=== PATIENT | female | born 1970 | race Asian ===

== ENCOUNTER 2018-09-23 21:15 | Emergency (ER) | payer OTHER ==
--- NOTE | 2018-09-23 22:57 | ED Physician Documentation ---
PD HPI HEENT - Stated complaint Stated Complaint: DIZZINESS - Chief complaint Chief Complaint: Neuro - History obtained from History obtained from: Patient - History of Present Illness Timing - onset: How many days ago (2-3) Timing - duration: Days (She has been having feeling of dizziness but not distinct vertigo but she was feeling worse when she turned her head or changed p osition. She still had some sense of motion with even laying still. She describes a posterior headache near the base of the neck. She denies any injury. She denies any other focal deficits or visual changes.) Timing - details: Abrupt onset, Waxing and waning Location: No: Sinuses, Throat Improves: Other (holding still) Worsens: Position, Other (head movement) Associated symptoms: Headache (posteriorly, from neck to back of head). No: Fever, Congestion, Cough Similar symptoms before: Has not had sx before Recently seen: Not recently seen Review of Systems Constitutional: reports: Other (She states she took her blood pressure over the last week and it has been about 1 60-1 80 systolic). denies: Fever Eyes: denies: Loss of vision, Decreased vision, Photophobia Nose: denies: Rhinorrhea / runny nose, Congestion Throat: denies: Sore throat Respiratory: denies: Cough GI: reports: Nausea. denies: Abdominal Pain, Diarrhea Skin: denies: Rash, Lesions Neurologic: reports: Headache. denies: Focal weakness, Numbness, Altered mental status PD PAST MEDICAL HISTORY - Past Medical History Cardiovascular: None Respiratory: None Neuro: None Endocrine/Autoimmune: None - Present Medications Home Medications: Ambulatory Orders Medication Instructions Recorded Confirmed Dexamethasone [Decadron] 4 mg PO DAILY #5 tablet 09/24/18 Losartan [Cozaar] 50 mg PO DAILY #30 tablet 09/24/18 Meclizine [Antivert] 25 mg PO Q6H PRN #30 tablet 09/24/18 - Allergies Allergies/Adverse Reactions: Allergies Allergy/AdvReac Type Severity Reaction Status Date / Time No Known Drug Allergies Allergy Verified 09/23/18 21:21 PD ED PE NORMAL - Vitals Vital signs reviewed: Yes - General General: Alert and oriented X 3, Well developed/nourished - HEENT HEENT: PERRL, EOMI (no noted nystagmus), Ears normal, Pharynx benign - Neck Neck: Supple, no meningeal sign, No adenopathy, No bruit - Cardiac Cardiac: RRR, No murmur - Respiratory Respiratory: Clear bilaterally - Abdomen Abdomen: Soft, Non tender - Back Back: No CVA TTP - Derm Derm: Normal color, Warm and dry - Extremities Extremities: No deformity, No tenderness to palpate - Neuro Neuro: Alert and oriented X 3, 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, No motor deficit, No sensory deficit, Normal speech Results - Vitals Vitals: Vital Signs - 24 hr 09/23/18 09/23/18 09/24/18 21:18 23:18 02:49 Temperature 36.7 C 36.7 C Heart Rate 84 76 74 Respiratory 18 19 18 Rate Blood Pressure 232/123 H 182/104 H 137/64 H O2 Saturation 100 99 100 Oxygen O2 Source Room air - Labs Labs: Laboratory Tests 09/23/18 09/23/18 09/23/18 22:35 22:35 22:39 WBC 5.4 RBC 4.40 Hgb 13.5 Hct 39.9 MCV 90.8 MCH 30.7 MCHC 33.9 RDW 13.1 Plt Count 315 MPV 7.6 L Neut # (Auto) 2.8 Lymph # (Auto) 1.7 [place] # (Auto) 0.5 Eos # (Auto) 0.3 Baso # (Auto) 0.0 Absolute Nucleated RBC 0.00 Nucleated RBC % 0.1 ESR 14 Sodium 138 Potassium 3.6 Chloride 101 Carbon Dioxide 29 Anion Gap 8.0 BUN 13 Creatinine 0.7 Estimated GFR (MDRD) 89 Glucose 105 H Calcium 9.1 Total Bilirubin 0.4 AST 15 ALT 16 Alkaline Phosphatase 50 Total Protein 7.6 Albumin 4.2 Globulin 3.4 Albumin/Globulin Ratio 1.2 Lipase 38 - Rads (name of study) head and neck angio Radiology: Prelim report reviewed (Normal studies.), See rad report PD MEDICAL DECISION MAKING - ED course Complexity details: reviewed results (Labs are normal as is imaging and she is feeling better with meclizine and some Zofran.), considered differential (Given her vertigo with out a distinct motion and it does lessen but not completely dampen with holding still and combined with posterior headache, I was concerned about vascular insufficiency or dissection or tumors. Also consider the possibility of electrolyte disorders. We did some blood tests and will get head CT and an GUERDA.), d/w patient Departure - Departure Disposition: 01 Home, Self Care Clinical Impression: Dizziness Headache Qualifiers: Headache type: unspecified Headache chronicity pattern: acute headache Intractability: not intractable Qualified Code(s): R51 - Headache High blood pressure Qualifiers: Hypertension type: unspecified Qualified Code(s): I10 - Essential (primary) hypertension Condition: Stable Record reviewed to determine appropriate education?: Yes Instructions: ED Hypertension New Begin Tx, ED Vertigo Unspecified Follow-Up: Kory North MD [Primary Care Provider] - Prescriptions: Dexamethasone [Decadron] 4 mg PO DAILY #5 tablet Losartan [Cozaar] 50 mg PO DAILY #30 tablet Meclizine [Antivert] 25 mg PO Q6H PRN #30 tablet PRN Reason: Vertigo Comments: Your blood tests are normal and not indicating an inflammatory or infectious cause for the headache or dizziness. The CT scan of your head and the dye test portion of it showed normal blood flow and no signs of tumor swelling or bleeding. I presume your symptoms are from some inner ear irritation. Use meclizine every 6 hours if needed for dizziness/lightheadedness. Decadron daily for a few days for presumed some inflammation in the inner ear. Some of the headache and lightheaded feeling may be from your blood pressure being as elevated. However you have had symptoms with your blood pressure only began as moderately elevated at home so I do not think it is the primary cause of your symptoms. However it was elevated enough to sounds reasonable to start a mild blood pressure medicine. Take losartan 50 mg daily. Follow-up with your primary care later in the week or next week if symptoms are not fully resolved and also to recheck your blood pressure. Discharge Date/Time: 09/24/18 02:49
[2018-09-23 23:00] LABS: BASOPHILS % (AUTO) 0.7 %; EOSINOPHILS # (AUTO) 0.3 10^3/uL (0.0-0.7); EOSINOPHILS % (AUTO) 5.8 %; HGB - HEMOGLOBIN 13.5 g/dL (12.0-16.0); LYMPHOCYTES # (AUTO) 1.7 10^3/uL (1.5-3.5); MEAN CORPUSCULAR HEMOGLOBIN 30.7 pg (27.0-31.0); MEAN CORPUSCULAR HGB CONC 33.9 g/dL (32.0-36.0); MEAN CORPUSCULAR VOLUME 90.8 fL (81.0-99.0); MEAN PLATELET VOLUME 7.6 fL (7.9-10.8); MONOCYTES # (AUTO) 0.5 10^3/uL (0.0-1.0); MONOCYTES % (AUTO) 8.6 %; NEUTROPHILS # (AUTO) 2.8 10^3/uL (1.5-6.6); NEUTROPHILS % (AUTO) 52.9 %; PLT - PLATELET COUNT 315 10^3/uL (130-450); RED CELL DISTRIBUTION WIDTH 13.1 % (12.0-15.0); WHITE BLOOD COUNT 5.4 x10^3/uL (4.8-10.8)
[2018-09-23 23:14] LABS: ALBUMIN 4.2 g/dL (3.2-5.5); ALBUMIN/GLOBULIN RATIO 1.2 (1.0-2.2); BILIRUBIN,TOTAL 0.4 mg/dL (0.2-1.0); CALCIUM 9.1 mg/dL (8.5-10.3); CREATININE 0.7 mg/dL (0.4-1.0); TOTAL PROTEIN 7.6 g/dL (6.7-8.2)
[2018-09-23] MEDS ORDERED: KETOROLAC 15 MG/ML VIAL IVP STA (23:15)
[2018-09-23] MEDS ORDERED: ONDANSETRON 4 MG/2 ML VIAL IVP STA (23:17)
[2018-09-23] MEDS ORDERED: MECLIZINE 12.5 MG TABLET PO STA (23:17)
[2018-09-23] MEDS ORDERED: IOVERSOL 320 100 ML VIAL IVP ONE (23:25)
[2018-09-24] MEDS ORDERED: IOVERSOL 320 100 ML VIAL IVP ONE (00:22)
--- NOTE | 2018-09-24 02:05 | CT Report ---
Reason: posterior headache and dizziness Procedure Date: 09/24/2018 Accession Number: [id number] / [id number] Procedure: CT - ANGIO HEAD W CPT Code: FULL RESULT: EXAM: CT HEAD EXAM DATE: 09/24/2018. CLINICAL HISTORY: Posterior headache and dizziness. COMPARISON: None. TECHNIQUE: Multiaxial CT images were obtained from the foramen magnum to the vertex. Images performed both without and with contrast. Reformats: Coronal. IV contrast: Yes, without and with AML Optiray 320. In accordance with CT protocol optimization, one or more of the following dose reduction techniques were utilized for this exam: automated exposure control, adjustment of mA and/or KV based on patient size, or use of iterative reconstructive technique. FINDINGS: Parenchyma: No intraparenchymal hemorrhage. No evidence of mass, midline shift, or CT findings of infarction. Patel-white differentiation is distinct. There is no enhancing abnormality. Extraaxial Spaces: Normal for age. No subdural or epidural collections identified. Ventricles: Normal in size and position. Sinuses and Orbits: Imaged paranasal sinuses, orbits, and mastoids show no significant abnormality. Bones: No evidence of fracture or calvarial defect. Other: None. IMPRESSION: Normal head CT. RADIA
--- NOTE | 2018-09-24 02:15 | CT Report ---
Reason: posterior headache and dizziness Procedure Date: 09/24/2018 Accession Number: [id number] / [id number] Procedure: CT - ANGIO NECK W/WO CPT Code: FULL RESULT: EXAM: CT ANGIOGRAM HEAD AND NECK. EXAM DATE: 09/24/2018. CLINICAL HISTORY: Posterior headache and dizziness. COMPARISON: Concurrent head CT. TECHNIQUE: Routine axial helical CTA imaging was performed from the aortic arch through the [place] of [place]. Reconstructions: Routine multiplanar 3D MIP reconstructions. IV contrast: Yes. NASCET Criteria are used for stenosis measurements. In accordance with CT protocol optimization, one or more of the following dose reduction techniques were utilized for this exam: automated exposure control, adjustment of mA and/or KV based on patient size, or use of iterative reconstructive technique. FINDINGS: CT ANGIOGRAM EXTRACRANIAL CIRCULATION: The visualized arch is unremarkable. Great vessels are patent and unremarkable. Right Carotid: The common carotid, internal carotid, and external carotid arteries are widely patent. No dissection, significant atherosclerotic plaque, or calcification identified. Left Carotid: The common carotid, internal carotid, and external carotid arteries are widely patent. No dissection, significant atherosclerotic plaque, or calcification identified. Vertebrals: Motion mildly obscures the proximal left vertebral artery and there is equivocal left vertebral origin stenosis. No additional left vertebral stenosis. No right vertebral stenosis. CT ANGIOGRAM INTRACRANIAL CIRCULATION: Calcification of bilateral supraclinoid ICA segments. Mild narrowing of the distal right ICA. No additional stenosis. No aneurysm. The dural venous sinuses are patent. Other: The visualized bones, soft tissues, and lung apices are unremarkable. IMPRESSION: CT ANGIOGRAM NECK: Motion artifact versus possible moderate narrowing of left vertebral origin. No additional vertebral stenosis. No cervical carotid stenosis. CT ANGIOGRAM HEAD: Mild narrowing of the supraclinoid right ICA. No additional intracranial stenosis. No aneurysm. RADIA
[2018-09-24 02:50] VITALS: BP 137/64
== END 2018-09-24 02:49 | disposition home or self-care (01) ==
LOC: ED 21:15
DX: R42 Dizziness and giddiness (principal); R51 Headache; I10 Essential (primary) hypertension
CPT/HCPCS: 36415; 70496; 70498; 80053; 83690; 85025; 85651; 93005; 96374; 96375; 99283; A9270; Q9967

== ENCOUNTER 2018-10-08 08:00 | Outpatient (CLI) | payer OTHER ==
[2018-10-08 13:16] LABS: CHOL/HDL RATIO 4.1 (<4.4); CHOLESTEROL 204 mg/dL; HDL CHOLESTEROL 50 mg/dL; LDL CHOLESTEROL,CALCULATED 127 mg/dL; LDL/HDL RATIO 2.5 (<4.4); VLDL CHOLESTEROL 27 mg/dL
[2018-10-08 14:01] LABS: HB2 TOTAL 14.2 g/dL; HEMOGLOBIN A1C 0.49 g/dL; HEMOGLOBIN A1C % 5.3 % (4.6-6.2)
== END 2018-10-08 08:01 | disposition home or self-care (01) ==
LOC: LAB.WCP 08:00
PROVIDERS: ATTEND Family Medicine
DX: I10 Essential (primary) hypertension (principal)
CPT/HCPCS: 36415; 80061; 83036; 83721; 84443

== ENCOUNTER 2020-01-31 09:53 | Emergency (ER) | payer OTHER ==
--- NOTE | 2020-01-31 10:25 | ED Physician Documentation ---
History of Present Illness - Stated complaint Stated Complaint: BACK PX - Chief complaint Chief Complaint: Back Pain - History obtained from History obtained from: Patient - Additonal information Additional information: Patient comes emergency department complaining of left rib/back pain. Patient denies any direct injury or strenuous activity. She states that the pain developed approximately a week ago and has not gone away. No vesicles or other lesions. No fevers or chills. No cough, shortness of breath, or chest pain. Patient denies any abdominal pain, nausea, or vomiting. No dysuria or hematuria. No other complaints at this time. Review of Systems Ten Systems: 10 systems reviewed and negative Constitutional: reports: Reviewed and negative Eyes: reports: Reviewed and negative Ears: reports: Reviewed and negative Nose: reports: Reviewed and negative Throat: reports: Reviewed and negative Cardiac: reports: Reviewed and negative Respiratory: reports: Reviewed and negative GI: reports: Reviewed and negative : reports: Reviewed and negative Skin: reports: Reviewed and negative Musculoskeletal: reports: Back pain Neurologic: reports: Reviewed and negative Psychiatric: reports: Reviewed and negative Endocrine: reports: Reviewed and negative Immunocompromised: reports: Reviewed and negative PD PAST MEDICAL HISTORY - Past Medical History Cardiovascular: None Respiratory: None Neuro: None Endocrine/Autoimmune: None - Past Surgical History 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 - Present Medications Home Medications: Ambulatory Orders Medication Instructions Recorded Confirmed Losartan [Cozaar] 50 mg PO DAILY #30 tablet 09/24/18 Meclizine [Antivert] 25 mg PO Q6H PRN #30 tablet 09/24/18 dexAMETHasone [Decadron] 4 mg PO DAILY #5 tablet 09/24/18 Cyclobenzaprine [Flexeril] 10 mg PO TID PRN #20 tablet 01/31/20 - Allergies Allergies/Adverse Reactions: Allergies Allergy/AdvReac Type Severity Reaction Status Date / Time No Known Drug Allergies Allergy Verified 01/31/20 10:18 - Social History Does the pt smoke?: No Smoking Status: Never smoker Does the pt drink ETOH?: No Does the pt have substance abuse?: No PD ED PE NORMAL - Vitals Vital signs reviewed: Yes - General General: Alert and oriented X 3, No acute distress, Well developed/nourished - HEENT HEENT: Atraumatic, PERRL, EOMI, Moist mucous membranes - Neck Neck: Supple, no meningeal sign - Cardiac Cardiac: RRR, No murmur, Strong equal pulses - Respiratory Respiratory: No respiratory distress, Clear bilaterally - Abdomen Abdomen: Soft, Non tender, Non distended - Back Back: No CVA TTP, No spinal TTP, Other (Tenderness over left posterior ribs 8 through 10. No step-off.) - Derm Derm: Warm and dry - Extremities Extremities: No deformity, No edema, No calf tenderness / cord - Neuro Neuro: Alert and oriented X 3, Other (Grossly normal) - Psych Psych: Normal mood, Normal affect Results - Vitals Vitals: Vital Signs - 24 hr 01/31/20 01/31/20 10:08 11:12 Temperature 36.7 C 36.9 C Heart Rate 65 76 Respiratory 20 12 Rate Blood Pressure 190/97 H 169/87 H O2 Saturation 98 97 Oxygen O2 Source Room air - Rads (name of study) chest x-ray Radiology: Final report received, EMP read indepedently, See rad report (NAD) PD MEDICAL DECISION MAKING - ED course Complexity details: reviewed results, re-evaluated patient, considered differential, d/w patient ED course: Treated symptomatically in the emergency department. X-ray was negative. I spoke with the patient regarding this and explained to her that I feel she most likely has a muscle spasm/inflammation. She has not had direct trauma to her posterior rib cage to cause pain she is having. She has no evidence of infection and there is no mass. There is no deeper pathology in her lungs. We have discussed home management of the symptoms, as well as the usual indications for return. Departure - Departure Disposition: 01 Home, Self Care Clinical Impression: Back muscle spasm High blood pressure Qualifiers: Hypertension type: essential hypertension Qualified Code(s): I10 - Essential (primary) hypertension Condition: Stable Instructions: ED Neck Back Pain General Prescriptions: Cyclobenzaprine [Flexeril] 10 mg PO TID PRN #20 tablet PRN Reason: Spasms Comments: Your x-ray looks good. The symptoms you are having, as well as the physical findings, point most probably to a muscle irritation or spasm over your ribs. This is a sensitive area and very common place for people to have pain. You have not had any direct trauma and your x-ray looks good, and there is no evidence of an emergent condition causing your symptoms. At this point in time, the focus is to help you feel better at home. This condition will ultimately resolve on its own. You may use the medication prescribed to help with the symptoms, and may also continue to use ibuprofen or naproxen to augment the p rescribed medication. Please follow-up with your primary care physician if you are not feeling better in a week. Discharge Date/Time: 01/31/20 11:49
[2020-01-31] MEDS: KETOROLAC 60 MG/2 ML VIAL IM STA (10:30)
[2020-01-31] MEDS: HYDROcod/ACETAM 5/325 MG TABLET PO STA (10:30)
[2020-01-31 11:13] VITALS: BP 169/87
--- NOTE | 2020-01-31 12:09 | XRAY Report ---
PROCEDURE: Chest 2 View X-Ray INDICATIONS: cough TECHNIQUE: 2 view(s) of the chest. COMPARISON: None. FINDINGS: Surgical changes and devices: None. Lungs and pleura: No pleural effusions or pneumothorax. Lungs are clear. Mediastinum: Mediastinal contours are normal. Heart size is normal. Bones and chest wall: No suspicious bony abnormalities. Soft tissues appear unremarkable. IMPRESSION: Unremarkable portable chest. Reviewed by: Anibal Sifuentes MD on 01/31/2020 11:08 AM LINDA Approved by: Anibal Sifuentes MD on 01/31/2020 11:08 AM LINDA Station ID: [id number]
== END 2020-01-31 11:49 | disposition home or self-care (01) ==
LOC: ED 09:53
DX: M62.830 Muscle spasm of back (principal); I10 Essential (primary) hypertension
CPT/HCPCS: 71046; 96372; 99283; 99284; A9270

== ENCOUNTER 2020-11-07 08:00 | Outpatient (CLI) | payer OTHER ==
[2020-11-07 12:23] LABS: BASOPHILS % (AUTO) 0.9 %; EOSINOPHILS # (AUTO) 0.2 10^3/uL (0.0-0.7); EOSINOPHILS % (AUTO) 4.5 %; HCT - HEMATOCRIT 40.5 % (37.0-47.0); HGB - HEMOGLOBIN 13.7 g/dL (12.0-16.0); LYMPHOCYTES # (AUTO) 1.7 10^3/uL (1.5-3.5); LYMPHOCYTES % (AUTO) 37.1 %; MEAN CORPUSCULAR HEMOGLOBIN 30.9 pg (27.0-31.0); MEAN CORPUSCULAR HGB CONC 33.8 g/dL (32.0-36.0); MEAN CORPUSCULAR VOLUME 91.2 fL (81.0-99.0); MONOCYTES # (AUTO) 0.4 10^3/uL (0.0-1.0); MONOCYTES % (AUTO) 7.9 %; NEUTROPHILS # (AUTO) 2.3 10^3/uL (1.5-6.6); NEUTROPHILS % (AUTO) 49.4 %; PLT - PLATELET COUNT 295 10^3/uL (130-450); RED BLOOD COUNT 4.44 10^6/uL (4.20-5.40); RED CELL DISTRIBUTION WIDTH 12.1 % (12.0-15.0); WHITE BLOOD COUNT 4.7 x10^3/uL (4.8-10.8)
[2020-11-07 12:43] LABS: BILIRUBIN,URINE NEGATIVE (NEGATIVE); GLUCOSE, URINE (UA) NEGATIVE (NEGATIVE); KETONES,URINE (UA) NEGATIVE (NEGATIVE); LEUKOCYTE ESTERASE, URINE SMALL (NEGATIVE); NITRITE,URINE NEGATIVE (NEGATIVE); OCCULT BLOOD,URINE TRACE-INTA (NEGATIVE); PH,URINE 7.5 PH (5.0-7.5); PROTEIN,URINE NEGATIVE (NEGATIVE); UROBILINOGEN,URINE 0.2 (NORMAL) E.U./dL (NORMAL)
[2020-11-07 12:49] LABS: BACTERIA,URINE Rare /HPF (None Seen); CLARITY,URINE CLEAR (CLEAR); MUCUS,URINE Few Strands; RBC,URINE 0-5 /HPF (0-5); SQUAMOUS EPITHELIAL CELL,UR FEW Squamous (<= Few); WBC,URINE 0-3 /HPF (0-5)
[2020-11-07 13:33] LABS: ALBUMIN 4.3 g/dL (3.2-5.5); ALBUMIN/GLOBULIN RATIO 1.2 (1.0-2.2); ALKALINE PHOSPHATASE 47 IU/L (42-121); ALT ALANINE AMINOTRANSFERASE 20 IU/L (10-60); AST ASPARTATE AMINOTRANSFERASE 19 IU/L (10-42); BILIRUBIN,TOTAL 0.6 mg/dL (0.2-1.0); BUN - BLOOD UREA NITROGEN 11 mg/dL (6-20); CALCIUM 9.1 mg/dL (8.5-10.3); CARBON DIOXIDE - CO2 28 mmol/L (21-32); CHLORIDE 101 mmol/L (101-111); CHOL/HDL RATIO 4.8 (<4.4); CHOLESTEROL 238 mg/dL; CREATININE 0.6 mg/dL (0.4-1.0); GFR - MDRD 105 (>89); GLUCOSE 101 mg/dL (70-100); HDL CHOLESTEROL 50 mg/dL; LDL CHOLESTEROL,CALCULATED 149 mg/dL; POTASSIUM 4.2 mmol/L (3.5-5.0); SODIUM 138 mmol/L (135-145); TOTAL PROTEIN 7.8 g/dL (6.7-8.2); TRIGLYCERIDES 193 mg/dL; VLDL CHOLESTEROL 39 mg/dL
== END 2020-11-07 23:59 | disposition home or self-care (01) ==
LOC: LAB.WCP 08:00
PROVIDERS: ATTEND Family Medicine
DX: Z00.00 Encounter for general adult medical examination without abnormal findings (principal); R10.31 Right lower quadrant pain
CPT/HCPCS: 36415; 80053; 80061; 81001; 83721; 85025; 87086

== ENCOUNTER 2022-06-19 08:06 | Outpatient (CLI) | payer OTHER ==
[2022-06-19 12:42] LABS: BASOPHILS # (AUTO) 0.1 10^3/uL (0.0-0.1); EOSINOPHILS # (AUTO) 0.2 10^3/uL (0.0-0.7); EOSINOPHILS % (AUTO) 4.4 %; HCT - HEMATOCRIT 43.7 % (37.0-47.0); HGB - HEMOGLOBIN 14.1 g/dL (12.0-16.0); LYMPHOCYTES # (AUTO) 1.8 10^3/uL (1.5-3.5); LYMPHOCYTES % (AUTO) 35.7 %; MEAN CORPUSCULAR HEMOGLOBIN 29.7 pg (27.0-31.0); MEAN CORPUSCULAR HGB CONC 32.3 g/dL (32.0-36.0); MONOCYTES # (AUTO) 0.4 10^3/uL (0.0-1.0); MONOCYTES % (AUTO) 7.2 %; NEUTROPHILS # (AUTO) 2.6 10^3/uL (1.5-6.6); NEUTROPHILS % (AUTO) 51.5 %; PLT - PLATELET COUNT 320 10^3/uL (130-450); RED BLOOD COUNT 4.75 10^6/uL (4.20-5.40); RED CELL DISTRIBUTION WIDTH 12.6 % (12.0-15.0)
[2022-06-19 13:03] LABS: ALBUMIN 4.2 g/dL (3.2-5.5); ALBUMIN/GLOBULIN RATIO 1.1 (1.0-2.2); ALKALINE PHOSPHATASE 53 IU/L (42-121); ALT ALANINE AMINOTRANSFERASE 15 IU/L (10-60); AST ASPARTATE AMINOTRANSFERASE 15 IU/L (10-42); BILIRUBIN,TOTAL 0.7 mg/dL (0.2-1.0); BUN - BLOOD UREA NITROGEN 12 mg/dL (6-20); CALCIUM 8.7 mg/dL (8.5-10.3); CARBON DIOXIDE - CO2 28 mmol/L (21-32); CHLORIDE 101 mmol/L (101-111); CHOLESTEROL 270 mg/dL; CREATININE 0.7 mg/dL (0.4-1.0); GFR - MDRD 88 (>89); GLUCOSE 95 mg/dL (70-100); HDL CHOLESTEROL 54 mg/dL; LDL CHOLESTEROL,CALCULATED 186 mg/dL; LDL/HDL RATIO 3.4 (<4.4); POTASSIUM 3.9 mmol/L (3.5-5.0); SODIUM 137 mmol/L (135-145); TOTAL PROTEIN 7.9 g/dL (6.7-8.2); TRIGLYCERIDES 148 mg/dL; VLDL CHOLESTEROL 30 mg/dL
[2022-06-19 13:10] LABS: THYROID STIMULATING HORMONE 1.63 uIU/mL (0.34-5.60)
== END 2022-06-19 08:07 | disposition home or self-care (01) ==
LOC: LAB.N 08:06
PROVIDERS: ATTEND Physician Assistant
DX: I10 Essential (primary) hypertension (principal); E78.00 Pure hypercholesterolemia, unspecified
CPT/HCPCS: 36415; 80053; 80061; 83721; 84443; 85025

== ENCOUNTER 2022-07-03 10:29 | Outpatient (CLI) | payer OTHER ==
--- NOTE | 2022-07-04 15:12 | Mammography Report ---
BILATERAL DIGITAL DIAGNOSTIC MAMMOGRAM 3D/2D WITH SPOT COMPRESSION: 07/03/2022 CLINICAL: Palpable right breast lump. Comparison is made to exams dated: 10/09/2011 mammogram, 11/09/2009 mammogram, and 02/11/2008 mammogram - [facility]. Both breasts are extremely dense, which lowers the sensitivity of mammography (category d />75% gland ular tissue). There is a new irregular high density asymmetry with a spiculated margin in the right breast at 12 o' clock middle depth. This is seen in additional views. This correlates as palpated. There is sandoval ectural distortion associated with the asymmetry. There is a new oval asymmetry with an obscured and circumscribed margin in the left breast at 12 o'cl ock middle depth. This is seen in additional views. There is possible architectural distortion asso ciated with the asymmetry. No other significant masses or calcifications are seen in either breast. IMPRESSION: INCOMPLETE: NEEDS ADDITIONAL IMAGING EVALUATION The new irregular high density asymmetry in the right breast at 12 o'clock middle depth corresponds t o the palpable abnormality and is suspicious. An ultrasound is recommended. The possible new oval asymmetry in the left breast at 12 o'clock middle depth is indeterminate. An u ltrasound is recommended. Bilateral breast ultrasound was performed immediately following this exam. Based on Tyrer-Cuzick model (a risk assessment model), the patient's lifetime risk is 33.2% and her 1 0 year risk is 10.0%. If a patient has an elevated risk, a more comprehensive evaluation should be co nsidered and/or a referral to a genetic counselor. The [place] [employer], [place] [employer], and NCCN Guidelines advise the consideration of Breast MRI as an adjunct to screening mammo graphy in patients whose "Lifetime risk to develop breast cancer" is 20% or higher. This exam was interpreted at Station ID: [id number]. NOTE: For mammograms, a report in lay terms will be sent to the patient. Approximately 15% of breast malignancies will not be visualized mammographically. In the management of a palpable breast mass, a negative mammogram must not discourage biopsy of a clinically suspicious lesion. Electronically Signed By: Claudia atkins/:07/03/2022 12:20:53 ACR BI-RADS Category 0: Incomplete 3340F PARENCHYMAL PATTERN: (VD) - The breast(s) demonstrate(s) extremely dense parenchyma, limiting the sen sitivity of mammography. BI-RADS CATEGORY: (0) - 0 Ultrasound [id number] Immediate follow-up LATERALITY: (B)
--- NOTE | 2022-07-04 15:12 | Ultrasound Report ---
LIMITED ULTRASOUND OF LEFT BREAST: 07/03/2022 CLINICAL: Patient returns today to evaluate a focal asymmetry in the left breast. Comparison is made to exams dated: 07/03/2022 mammogram, 10/09/2011 mammogram, 11/09/2009 mammogram, 2009 ultrasound, 02/11/2008 ultrasound, and 02/11/2008 mammogram - [facility]. Color flow ultrasound of the left breast 1 o'clock region was performed. Patel scale images of the r eal-time examination were reviewed. There is a 1.2 cm x 0.7 cm x 0.6 cm oval cyst with a thickened wall in the left breast at 1 o'clock m iddle depth 3 cm from the nipple. This oval cyst is anechoic with an echogenic boundary and posterio r acoustic enhancement. This correlates with mammography findings. Color flow imaging demonstrates that there is no vascularity present. There is no adjacent tissue distortion to correspond to the ar chitectural distortion on mammography. IMPRESSION: PROBABLY BENIGN The 1.2 cm x 0.7 cm x 0.6 cm oval cyst in the left breast corresponds to the mammogram finding, most likely is a minimally complicated cyst and is probably benign. A follow-up left mammogram and an ultrasound in 6 months is recommended to demonstrate stability. Findings and recommendations were conveyed to the patient at time of exam. This exam was interpreted at Station ID: [id number]. Electronically Signed By: Claudia atkins/:07/03/2022 12:23:12 Ultrasound BI-RADS: 3 Probably benign BI-RADS CATEGORY: (3) - 3 Mammo and [place] [id number] 6 month follow-up LATERALITY: (L)
--- NOTE | 2022-07-04 15:12 | Ultrasound Report ---
LIMITED ULTRASOUND OF RIGHT BREAST AND AXILLA: 07/03/2022 CLINICAL: Palpable right breast lump and focal pain. Comparison is made to exams dated: 07/03/2022 mammogram, 10/09/2011 mammogram, 11/09/2009 mammogram, 2009 ultrasound, 02/11/2008 ultrasound, and 02/11/2008 mammogram - [facility]. Color flow ultrasound of the right breast 12 o'clock, and axilla regions was performed. Patel scale i mages of the real-time examination were reviewed. There is a 1.5 cm x 2.8 cm x 1.6 cm irregular mass with a microlobulated, angular, and spiculated mar gin in the right breast at 12 o'clock middle depth 4 cm from the nipple. This irregular mass display s a hyperechoic rim and posterior acoustic shadowing. This correlates as palpated and with mammograp hy findings. There are calcifications within the mass. Color flow imaging demonstrates that there i s increased vascularity. There also is an irregular lymph node in the right axillary tail with a cortex 3.4 mm at the upper li mits of normal. Color flow imaging demonstrates that there is no vascularity present. IMPRESSION: HIGHLY SUGGESTIVE OF MALIGNANCY The 1.5 cm x 2.8 cm x 1.6 cm irregular mass in the right breast at 12 o'clock middle depth is highly suggestive of malignancy. An ultrasound guided biopsy is recommended. The irregular lymph node in the right axillary tail is suspicious of malignancy. An ultrasound guide d biopsy is recommended if it is found to be enlarged on the day of breast biopsy. Findings and recommendations were discussed with the patient in person by Dr. Frank Mace at time of ex am. This exam was interpreted at Station ID: [id number]. Electronically Signed By: Claudia atkins/:07/03/2022 12:27:41 Ultrasound BI-RADS: 5 Highly suggestive of malignancy BI-RADS CATEGORY: (5) - 5 Biopsy [id number] Immediate follow-up LATERALITY: (R)
== END 2022-07-03 10:30 | disposition home or self-care (01) ==
LOC: DI 10:29
PROVIDERS: ATTEND Physician Assistant
DX: N63.15 Unspecified lump in the right breast, overlapping quadrants (principal); N60.02 Solitary cyst of left breast

== ENCOUNTER 2022-07-09 09:24 | Outpatient (CLI) | payer OTHER ==
[~2022-07-09 09:24] MED LIST: LIDOCAINE 1%-EPI 1:100000 20 ML MDV ONE; LIDOCAINE-MPF 1% 5 ML VIAL ONE
[2022-07-09] MEDS ORDERED: LIDOCAINE 1%-EPI 1:100000 20 ML MDV SUBQ ONE (10:55)
[2022-07-09] MEDS ORDERED: LIDOCAINE-MPF 1% 5 ML VIAL TD ONE (10:56)
--- NOTE | 2022-07-10 09:45 | Ultrasound Report ---
ULTRASOUND GUIDED BIOPSY RIGHT BREAST USING VACUUM DEVICE WITH MARKING DEVICE INSERTED AND POST DIGIT AL MAMMOGRAPHIC IMAGIN07/09/2022 CLINICAL: Right breast mass. PATIENT CONSENT: Risks (minor bleeding, infection, vasovagal reaction and repeat procedure), benefits and alternatives were explained to the patient and written informed consent was obtained. Correlation is made to exams dated: 07/03/2022 ultrasound, 07/03/2022 mammogram, 10/09/2011 mammogram, mammogram, 11/09/2009 ultrasound, and 02/11/2008 ultrasound - [facility]. An ultrasound guided biopsy using real-time ultrasound was performed for the indistinct irregular sha ped solid mass located in the right breast central to the nipple anterior depth. This was described on the previous mammography and ultrasound reports. The skin was prepped in the usual manner. Topic al and local anesthetic was administered to the access site. A skin roberto was made in the breast. Th e abnormality was approached from the lateral aspect. A biopsy needle was placed adjacent to the abn ormality under ultrasound guidance. Once the needle was documented to be in the correct location, a specimen was obtained using the Mammotome biopsy system. A titanium clip was inserted into the biops y cavity. A sterile dressing was applied to the access site. Post procedure digital mammographic im aging was obtained. The specimen was sent to the laboratory for pathological analysis. IMPRESSION: ULTRASOUND GUIDED BIOPSY Ultrasound guided biopsy of the solid mass in the right breast central to the nipple anterior depth w as successful. Waiting for pathology results. A final report will be issued when these become availa ble. Future imaging is recommended as follows: 12/31/2022 left mammogram and an ultrasound. This exam was interpreted at Station ID: Unknown. Jenifer Cooper M.D. alber/laura:07/09/2022 21:29:00 BI-RADS CATEGORY: () - Unspecified - other recall n/a LATERALITY: (B)
--- NOTE | 2022-07-10 09:45 | Mammography Report ---
UNILATERAL RIGHT DIGITAL DIAGNOSTIC MAMMOGRAM POST-PROCEDURE IMAGING FOR MARKER PLACEMENT: 07/09/2022 CLINICAL: Post right breast ultrasound biopsy clip placement imaging. Comparison is made to exams dated: 07/03/2022 mammogram, 10/09/2011 mammogram, 11/09/2009 mammogram, and 02/11/2008 mammogram - [facility]. There are scattered areas of fibroglandular density in the right breast (category b / 25%-50% glandul ar tissue). There is a marker clip in the appropriate position in the right breast anterior depth central to the nipple seen on the craniocaudal view only. This marker clip placement is immediately anterior to the mass. IMPRESSION: POST PROCEDURE MAMMOGRAM FOR MARKER PLACEMENT There was a successful marker clip placement in the right breast anterior depth central to the nipple seen on the craniocaudal view only. Future imaging is recommended as follows: 12/31/2022 left mammogram and an ultrasound. This exam was interpreted at Station ID: Unknown. NOTE: For mammograms, a report in lay terms will be sent to the patient. Approximately 15% of breast malignancies will not be visualized mammographically. In the management of a palpable breast mass, a negative mammogram must not discourage biopsy of a clinically suspicious lesion. Electronically Signed By: Jenifer Cooper M.D. [facility]/:07/09/2022 21:30:48 ACR BI-RADS Category Post-procedure mammogram for marker placement PARENCHYMAL PATTERN: (A) - The breast(s) demonstrate(s) scattered fibroglandular densities. BI-RADS CATEGORY: () - Unspecified - other recall n/a LATERALITY: (B)
== END 2022-07-09 09:25 | disposition home or self-care (01) ==
LOC: DI 09:24
PROVIDERS: ATTEND Physician Assistant
DX: C50.111 Malignant neoplasm of central portion of right female breast (principal)
CPT/HCPCS: 19083

== ENCOUNTER 2022-08-21 11:36 | Outpatient (CLI) | payer OTHER ==
[~2022-08-21 11:36] MED LIST changes: -LIDOCAINE 1%-EPI 1:100000 20 ML MDV ONE
[2022-08-21] MEDS ORDERED: LIDOCAINE-MPF 1% 5 ML VIAL TD ONE (13:30)
--- NOTE | 2022-08-22 09:57 | Mammography Report ---
UNILATERAL RIGHT DIGITAL DIAGNOSTIC MAMMOGRAM POST-PROCEDURE IMAGING FOR MARKER PLACEMENT: 08/21/2022 CLINICAL: Post right breast ultrasound biopsy clip placement imaging. Comparison is made to exams dated: 08/08/2022 breast MRI, 07/09/2022 mammogram, 07/03/2022 mammogram, 10/08 mammogram, and 11/09/2009 mammogram - [facility]. There are scattered areas of fibroglandular density in the right breast (category b / 25%-50% glandul ar tissue). There is a marker clip in the appropriate position in the right axillary tail corresponding to lymph node biopsy. This marker clip placement is at the biopsy site. IMPRESSION: POST PROCEDURE MAMMOGRAM FOR MARKER PLACEMENT There was a successful marker clip placement in the right axillary tail correponding to biopsied lymp h node described in MRI report. . This exam was interpreted at Station ID: [id number]. NOTE: For mammograms, a report in lay terms will be sent to the patient. Approximately 15% of breast malignancies will not be visualized mammographically. In the management of a palpable breast mass, a negative mammogram must not discourage biopsy of a clinically suspicious lesion. Electronically Signed By: Frank Mace M.D. lc/:08/21/2022 16:02:06 ACR BI-RADS Category Post-procedure mammogram for marker placement PARENCHYMAL PATTERN: (A) - The breast(s) demonstrate(s) scattered fibroglandular densities. BI-RADS CATEGORY: () - Unspecified - other recall n/a LATERALITY: (B)
--- NOTE | 2022-08-29 15:48 | Ultrasound Report ---
ULTRASOUND GUIDED BIOPSY RIGHT BREAST: 08/21/2022 CLINICAL: Right axillary node biopsy. PATIENT CONSENT: Risks (minor bleeding, infection, vasovagal reaction and repeat procedure), benefits and alternatives were explained to the patient and written informed consent was obtained. Correlation is made to exams dated: 08/21/2022 mammogram - [facility], 08/08/2022 ekta ast MRI, 07/09/2022 ultrasound biopsy, 07/09/2022 mammogram, 07/03/2022 ultrasound, and 07/03/2022 mammogra m - [facility]. An ultrasound guided biopsy using real-time ultrasound was performed for the 0.7 cm x 1.1 cm x 0.6 cm oval lymph node located in the right axillary tail. This likely corresponds to the lymph node descr ibed in prior US report. The skin was prepped in the usual manner. Local anesthetic was administered to the access site. A s kin roberto was made in the breast. An 18 gauge biopsy needle was placed adjacent to the abnormality un joselin ultrasound guidance. Once the needle was documented to be in the correct location, four specimen s were obtained using a BARD biopsy device. Post procedure imaging demonstrates the clip at the targeted area. The specimens were sent to the [facility] for pathological analysis. IMPRESSION: ULTRASOUND GUIDED BIOPSY BENIGN Ultrasound guided biopsy of the 0.7 cm x 1.1 cm x 0.6 cm lymph node in the right axillary tail was sprague ccessful. This likely corresponds to the lymph node described in prior MR report. Pathology demonstrate "lymph node tissue with mild sinus histiocytosis." Pathology results are concor dant with imaging findings. A surgical/oncologic consultation is recommended for known right breast malignancy. Confirmation of US visibility of satellite masses described in prior MRI report was also performed. P atient is pending bracket wire localization for these lesions. This exam was interpreted at Station ID: [id number]. Frank Pepper M.D. ,slc/:08/29/2022 10:36:49 BI-RADS CATEGORY: () - Unspecified - other recall n/a LATERALITY: (B)
== END 2022-08-21 11:37 | disposition home or self-care (01) ==
LOC: DI 11:36
PROVIDERS: ATTEND Surgery
DX: C50.911 Malignant neoplasm of unspecified site of right female breast (principal); D76.3 Other histiocytosis syndromes
CPT/HCPCS: 19083

== ENCOUNTER 2022-09-14 06:20 | Day surgery (SDC) | payer OTHER ==
[~2022-09-14 06:20] MED LIST changes: +ACETAMINOPHEN 500 MG TABLET PO ONE; +CEFAZOLIN 2G/50ML 0.9% NS 2 GM/50 ML BAG IV ONE; -LIDOCAINE-MPF 1% 5 ML VIAL ONE
[2022-09-14] MEDS ORDERED: LACTATED RINGERS 1,000 ML IV ONE ×2 (07:06→14:19)
[2022-09-14] MEDS ORDERED: HYDROmorphone 0.5 MG/0.5 ML SYRINGE IVP PRN (07:22)
[2022-09-14] MEDS ORDERED: MORPHINE 2 MG/ML CARPUJECT IVP PRN (07:22)
[2022-09-14] MEDS ORDERED: NALOXONE 0.4 MG/ML VIAL IVP PRN (07:22)
[2022-09-14] MEDS ORDERED: fentaNYL 100 MCG/2 ML VIAL IVP PRN (07:22)
[2022-09-14] MEDS ORDERED: ePHEDrine 50 MG/ML VIAL IVP PRN (07:22)
[2022-09-14] MEDS ORDERED: METOCLOPRAMIDE 10 MG/2 ML VIAL IVP PRN (07:22)
[2022-09-14] MEDS ORDERED: ONDANSETRON 4 MG/2 ML VIAL IVP PRN (07:22)
[2022-09-14] MEDS ORDERED: ATROPINE ABBOJECT 1 MG/10 ML SYRINGE IVP PRN (07:22)
--- NOTE | 2022-09-14 07:22 | ANESTHESIA ---
Pre-Anesthesia VS, & Labs - Diagnosis R breast invasive ductal carcinoma - Procedure R breast lumpectomy, sentinal node biopsy Vital Signs: Temp Pulse Resp BP Pulse Ox O2 Flow Rate 36.3 C L 72 14 157/97 H 98 09/14/22 06:41 09/14/22 06:41 09/14/22 06:41 09/14/22 06:41 09/14/22 06:41 Height: 5 ft 1 in Weight (kg): 67.4 kg Body Mass Index: 28.0 BMI Classification: Overweight - NPO >8 hours - Is Patient ?: No Home Medications and Allergies Losartan Potassium [Cozaar] 100 mg PO DAILY 08/23/22 diphenhydrAMINE [Benadryl] 25 mg PO Q4-6H PRN 08/23/22 Tamoxifen [Nolvadex] 20 mg PO DAILY 08/24/22 Allergies/Adverse Reactions: Allergies Allergy/AdvReac Type Severity Reaction Status Date / Time No Known Drug Allergies Allergy Verified 01/31/20 10:18 Anes History & Medical History - Anesthetic History Anesthesia Complications: reports: No previous complications Family history of Anesthesia Complications: Denies Family history of Malignant Hyperthermia: Denies - Medical History Cardiovascular: reports: Hypertension Pulmonary: reports: None Gastrointestinal: reports: None Urinary: reports: None Neuro: reports: None Musculoskeletal: reports: None Endocrine/Autoimmune: reports: None Skin: reports: None Smoking Status: Never smoker - Surgical History Gynecologic: reports: Tubal ligation Exam General: Alert, Oriented x3, Cooperative Dental: WNL Mouth Openin Fingerbreadth Neck Mobility: Normal Mallampati classification: II Thyromental Distance: 4-6 cm Respiratory: Lungs clear Cardiovascular: Regular rate Plan Anesthesia Type: General Consent for Procedure(s) Verified and Reviewed: Yes Code Status: Attempt Resuscitation ASA classification: 3-Severe systemic disease Is this case an emergency?: No
[2022-09-14] MEDS ORDERED: LIDOCAINE-MPF 1% 5 ML VIAL ONE ×3 (07:43→12:09)
[2022-09-14] MEDS ORDERED: LACTATED RINGERS 1,000 ML IV SCH (08:00)
[2022-09-14] MEDS ORDERED: ALPRAZolam 0.25 MG TABLET PO ONE ×2 (08:13→08:20)
[2022-09-14] MEDS ORDERED: LIDOCAINE MPF 2%-EPI 1:200000 20 ML VIAL ONE (09:40)
[2022-09-14] MEDS ORDERED: BUPIVACAINE 0.25% PF 30 ML VIAL ONE (09:40)
[2022-09-14] MEDS ORDERED: LIDOCAINE-PF 2% 10 ML AMP SUBQ ONE (10:33)
[2022-09-14] MEDS ORDERED: PROPOFOL 200 MG/20 ML VIAL IVP ONE ×2 (10:33→14:00)
[2022-09-14] MEDS ORDERED: ONDANSETRON 4 MG/2 ML VIAL ONE ×2 (10:33→13:53)
[2022-09-14] MEDS ORDERED: DEXAMETHASONE 4 MG/ML VIAL ONE (10:33)
[2022-09-14] MEDS ORDERED: fentaNYL 100 MCG/2 ML VIAL ONE ×2 (10:35→12:40)
[2022-09-14] MEDS ORDERED: MIDAZOLAM 2 MG/2 ML VIAL ONE (10:35)
[2022-09-14] MEDS ORDERED: ePHEDrine 50 MG/ML VIAL IVP ONE (11:31)
[2022-09-14] MEDS ORDERED: ACETAMINOPHEN 1,000 MG/100 ML 1,000 MG/100 ML BAG IV ONE (11:47)
[2022-09-14] MEDS: LIDOCAINE-MPF 1% 5 ML VIAL SUBQ ONE ×2 (11:49→11:51)
[2022-09-14] MEDS ORDERED: LIDOCAINE 2%-EPI 1:100000 20 ML MDV SUBQ ONE ×2 (13:56)
[2022-09-14] MEDS ORDERED: BUPIVACAINE 0.25% PF 30 ML VIAL SUBQ ONE ×2 (13:57)
--- NOTE | 2022-09-14 14:23 | OPERATIVE REPORT ---
Operative Report - General Procedure Date: 09/14/22 Planned Procedure: right lumpectomy and sentinel lymph node biopsy Pre-Op Diagnosis: invasive ductal carcinoma Procedure Performed: right lumpectomy and sentinel lymph node biopsy Post Op Diagnosis: invasive ductal carcinoma - Procedure Note Primary Surgeon: Dr. Sherly Kovacs Anesthesia Provider: Arlen Villalpando CRNA Anesthesia Technique: General ET tube, Local Pathology: 1. right breast lumpectomy, (Labeled short superior, long lateral, double anterior) 2. Reexcision of inferior margin (labeled short new inferior margin, long lateral, double anterior) 3. [place] lymph node #1, 2105 4. The lymph node #2, 236 Estimated Blood Loss (mL): 50 Drain/Tube Type: Mario Maldonado round drain (Right breast) Indications: The patient felt a palpable mass and underwent diagnostic imaging and biopsy which confirmed invasive ductal carcinoma. The patient was seen and evaluated in clinic. We discussed the risks benefits and alternatives of lumpectomy versus mastectomy. Risks discussed include bleeding, infection, damage to surrounding structures, numbness, the need for further procedures, and positive margins requiring further excision. After discussion, the patient elected to proceed with lumpectomy. She specifically stated that her decision would not be changed by positive genetic results. The patient voiced understanding, her questions were answered, and she wished to proceed. A consent was signed by the patient in clinic. Findings: 1.Clip in reexcision specimen 2. Additional clip in sentinel lymph node #2 Complications: None - Other Other Information/Narrative: The patient was taken to the operating room and placed in the supine position. Preop antibiotics were given. ERAS medications were given. The patient was prepped and draped in the usual sterile fashion. A preop surgical timeout was performed. Attention was turned to the patient's right breast. An incision was made overlying the palpable mass in the area closest to the mass, approximately 6 cm superior to the patient's nipple. Skin flaps were raised superiorly and inferiorly to the incision. At this point, serrated scissors were used to perform a lumpectomy staying approximately 0.5 cm away from the palpable masses in all dimensions, and incorporating both the anterior and posterior wires placed prior to surgery for bracketing purposes. The lumpectomy specimen was removed and oriented with suture on the back table. The specimen was sent to mammography; the wires were in place, but the clip was not within the specimen. Inspection of the lumpectomy cavity, inferior to the area of resection there was additional firm tissue. An additional margin was reexcised in this location and oriented on the back table with suture. The lumpectomy cavity was again inspected and no additional palpable abnormalities were noted.. Hemostasis was confirmed. Additional local was injected into the tissues. Clips were placed in the superior, inferior, medial, lateral, and deep locations. Hemostasis was again confirmed. A 7 Khmer KENNETH drain was placed in the lumpectomy cavity due to its size. This was sewn into place using a 3-0 nylon suture. The deep dermal tissues were closed with 3-0 Vicryl in an interrupted fashion. The skin was closed with 4-0 Monocryl in a running subcuticular fashion. Attention was then turned to the right axilla. An incision was made just inferior to the hairline at the area of greatest uptake using the neoprobe device. The incision was made using a 15 blade scalpel and carried down through the skin and subcutaneous tissues to the level of the axillary fascia. The fascia was incised. Fascia was noted to be much more fibrotic than typical. The sentinel lymph nodes were identified using the neoprobe. Clips were used proximally and distally to the nodes and the nodes were removed the first node had a maximal reading of 2105 on the back table. The second sentinel lymph node measured 236, and correlated with the tip of the wire placed to identify the previously biopsied lymph node. This lymph node was sent to mammography and clip presence was confirmed. On further inspection, there were no additional lymph nodes that had at least 10% uptake, 210, and no abnormal palpable nodes. Hemostasis was confirmed in the axilla. The deep dermal tissues were closed with 3-0 Vicryl. A 4-0 Monocryl running stitch was placed in a subcuticular fashion. Skin glue was placed over both incisions. The patient tolerated the procedure well. There were no comp lications.
[2022-09-14] MEDS: HYDROmorphone 0.5 MG/0.5 ML SYRINGE IVP PRN ×2 (14:38→14:57)
[2022-09-14] MEDS ORDERED: HYDROmorphone 0.5 MG/0.5 ML SYRINGE ONE ×2 (14:40→14:59)
[2022-09-14] MEDS ORDERED: HYDROcod/ACETAM 5/325 MG TABLET PO STA (15:33)
[2022-09-14] MEDS ORDERED: HYDROcod/ACETAM 5/325 MG TABLET ONE (15:40)
--- NOTE | 2022-09-14 16:17 | ANESTHESIA POST OP EVALUATION ---
Anesthesia Post Eval - Post Anesthesia Eval Vitals: Last Vital Signs Temp 36.4 C L 09/14/22 15:57 Pulse 87 09/14/22 15:57 Resp 16 09/14/22 15:57 BP 142/94 H 09/14/22 15:57 Pulse Ox 95 09/14/22 15:57 O2 Flow Rate CV Function Including HR & BP: Stable Pain Control: Satisfactory Nausea & Vomiting: Negative Mental Status: Baseline Respiratory Status: Airway Patent Hydration Status: Satisfactory Anesthesia Complications: None
[2022-09-14 16:24] VITALS: BP 153/90
--- NOTE | 2022-09-17 10:59 | Mammography Report ---
UNILATERAL RIGHT DIGITAL DIAGNOSTIC MAMMOGRAM POST-PROCEDURE IMAGING FOR MARKER PLACEMENT: 09/14/2022 CLINICAL: Wire localization placement. No prior exams were available for comparison. The right breast is extremely dense, which lowers the sensitivity of mammography (category d />75% gl andular tissue). Four localization wires are present. One wire traverses the previously biopsied axillary lymph node. Another wire placed from a lateral approach terminates at the anterior margin of the 12:00 mass. Two wires are placed from a medial approach. The more superior of the medial wires is superficial, with t he thicker part of the wire protruding from the skin. This wire deployed incorrectly during localizat ion. The more inferior of the medial wires terminates at the smaller satellite lesion posteriorly. IMPRESSION: POST PROCEDURE MAMMOGRAM FOR MARKER PLACEMENT Four localization wires are present as above. Discussed with Dr. Kovacs by Dr. Bearden at 1030 hours on 09/14/2022. This exam was interpreted at Station ID: [id number]. NOTE: For mammograms, a report in lay terms will be sent to the patient. Approximately 15% of breast malignancies will not be visualized mammographically. In the management of a palpable breast mass, a negative mammogram must not discourage biopsy of a clinically suspicious lesion. Electronically Signed By: Dr. Cody Bearden M.D. an/:09/14/2022 11:22:09 ACR BI-RADS Category Post-procedure mammogram for marker placement PARENCHYMAL PATTERN: (VD) - The breast(s) demonstrate(s) extremely dense parenchyma, limiting the sen sitivity of mammography. BI-RADS CATEGORY: () - Unspecified - other recall n/a LATERALITY: (B)
--- NOTE | 2022-09-17 10:59 | Ultrasound Report ---
NEEDLE LOCALIZATION RIGHT BREAST: 09/14/2022 CLINICAL: Right axillary node biopsy. Correlation is made to exams dated: 09/14/2022 mammogram, 08/21/2022 ultrasound biopsy, 08/21/2022 mamm ogram - [facility], 08/08/2022 breast MRI, 07/09/2022 ultrasound biopsy, and 07/09/2022 m ammogram - [facility]. A wire localization was performed for the 1.5 cm x 2.8 cm x 1.6 cm abnormality located in the right b reast at 12 o'clock middle depth 4 cm from the nipple. The skin was prepped in the usual manner. A needle was inserted into the targeted area. The wire terminates at the anterior margin of the mass. Wire localization of the previously biopsied axillary lymph node was performed. The wire traverses th e lymph node. Two wires were placed from a medial approach. The more superior of the medial wires is superficial, w ith the thicker part of the wire protruding from the skin. This wire deployed incorrectly during loca lization. The more inferior of the medial wires terminates at the smaller satellite lesion posteriorl y. IMPRESSION: NEEDLE LOCALIZATION Wire localization performed as above. Discussed with Dr. Kovacs at 1030 hours 09/14/2022. This exam was interpreted at Station ID: [id number]. Dr. Cody Bearden M.D. an/:09/14/2022 12:51:17 BI-RADS CATEGORY: () - Unspecified - other recall n/a LATERALITY: (B)
--- NOTE | 2022-09-17 10:59 | Mammography Report ---
SPECIMEN: 09/14/2022 CLINICAL: Two Right breast specimens. Correlation is made to exams dated: 09/14/2022 localization, 09/14/2022 mammogram, 08/21/2022 mammogram - [facility], 08/08/2022 breast MRI, and 07/09/2022 mammogram - [facility]. Two localization wires and two marker clips are present in the surgical specimens. IMPRESSION: SPECIMEN Two localization wires and two marker clips are present in the surgical specimens. This exam was interpreted at Station ID: [id number]. Dr. oCdy Bearden M.D. an/:09/14/2022 14:00:17 BI-RADS CATEGORY: () - Unspecified - other recall n/a LATERALITY: (B)
== END 2022-09-14 06:21 | disposition home or self-care (01) ==
LOC: DI 06:20
PROVIDERS: ATTEND Surgery
PROC: 0HBT0ZZ Excision of Right Breast, Open Approach (ICD-10-PCS; principal; 2022-09-14 10:00)
PROC: 07B50ZX Excision of Right Axillary Lymphatic, Open Approach, Diagnostic (ICD-10-PCS; 2022-09-14 10:00)
DX: C50.811 Malignant neoplasm of overlapping sites of right female breast (principal); Z17.0 Estrogen receptor positive status [ER+]; I10 Essential (primary) hypertension
CPT/HCPCS: 19285

== ENCOUNTER 2023-08-28 08:07 | Day surgery (SDC) | payer OTHER ==
[2023-08-28] MEDS: LACTATED RINGERS 1,000 ML IV ONE ×2 (08:14→10:27)
--- NOTE | 2023-08-28 09:32 | ANESTHESIA ---
Pre-Anesthesia VS, & Labs - Diagnosis screening - Procedure colonoscopy Vital Signs: Temp Pulse Resp BP Pulse Ox O2 Flow Rate 36 C L 74 16 136/89 H 97 08/28/23 08:21 08/28/23 08:21 08/28/23 08:21 08/28/23 08:21 08/28/23 08:21 Height: 5 ft 2 in Weight (kg): 63.5 kg Body Mass Index: 25.6 BMI Classification: Overweight - NPO Other (600 am last water) - Is Patient ?: No Home Medications and Allergies Losartan Potassium [Cozaar] 100 mg PO DAILY 08/23/22 diphenhydrAMINE [Benadryl] 25 mg PO Q4-6H PRN 08/23/22 Tamoxifen [Nolvadex] 20 mg PO HS 08/24/22 Allergies/Adverse Reactions: Allergies Allergy/AdvReac Type Severity Reaction Status Date / Time No Known Drug Allergies Allergy Verified 08/27/23 13:16 Anes History & Medical History - Anesthetic History Anesthesia Complications: reports: No previous complications - Medical History Cardiovascular: reports: Hypertension Pulmonary: reports: None Gastrointestinal: reports: None Urinary: reports: None Neuro: reports: None Musculoskeletal: reports: None Endocrine/Autoimmune: reports: None Skin: reports: None Smoking Status: Never smoker History of Cancer?: Yes - Surgical History Gynecologic: reports: Tubal ligation, Other (breast cancer excision) Exam General: Alert, Oriented x3 Dental: WNL Mouth Opening: Greater than 4 Fingerbreadths Neck Mobility: Normal Mallampati classification: II Thyromental Distance: greater than 6 cm Respiratory: Lungs clear Cardiovascular: Regular rate Plan Anesthesia Type: Total IV Consent for Procedure(s) Verified and Reviewed: Yes Code Status: Attempt Resuscitation ASA classification: 2-Mild systemic disease Is this case an emergency?: Yes
[2023-08-28] MEDS ORDERED: LIDOCAINE-MPF 2% 5 ML VIAL ONE (09:46)
[2023-08-28] MEDS ORDERED: PROPOFOL 500 MG/50 ML 500 MG/50 ML VIAL ONE (09:46)
[2023-08-28] MEDS: SIMETHICONE *(INFANT SUSP)* 40 MG/0.6 ML BOTTLE PO ONE (10:06)
[2023-08-28 11:00] VITALS: BP 117/82; O2SAT 99
--- NOTE | 2023-08-28 11:12 | ANESTHESIA POST OP EVALUATION ---
Anesthesia Post Eval - Post Anesthesia Eval Vitals: Last Vital Signs Temp 36.1 C L 08/28/23 10:45 Pulse 70 08/28/23 10:45 Resp 14 08/28/23 10:45 BP 117/82 H 08/28/23 10:45 Pulse Ox 99 08/28/23 10:45 O2 Flow Rate CV Function Including HR & BP: Stable Pain Control: Satisfactory Nausea & Vomiting: Negative Mental Status: Baseline Respiratory Status: Airway Patent Hydration Status: Satisfactory Anesthesia Complications: None
== END 2023-08-28 08:08 | disposition home or self-care (01) ==
LOC: SDS 08:07
PROVIDERS: ATTEND Surgery
PROC: 0DBN8ZX Excision of Sigmoid Colon, Via Natural or Artificial Opening Endoscopic, Diagnostic (ICD-10-PCS; principal; 2023-08-28 10:00)
DX: Z12.11 Encounter for screening for malignant neoplasm of colon (principal); K63.5 Polyp of colon; I10 Essential (primary) hypertension; Z80.0 Family history of malignant neoplasm of digestive organs
CPT/HCPCS: 45380; A9270; J7120

== ENCOUNTER 2023-09-05 08:45 | Outpatient (CLI) | payer OTHER ==
--- NOTE | 2023-09-06 11:35 | Mammography Report ---
BILATERAL DIGITAL DIAGNOSTIC MAMMOGRAM 3D/2D WITH SPOT COMPRESSION - RIGHT BREAST POST LUMPECTOMY: 09/05/2023 CLINICAL: Post right lumpectomy and radiation therapy. Due for bilateral exam. Comparison is made to exams dated: 12/07/2022 breast MRI - [facility], 09/14/2022 localization, 09/14 mammogram, and 08/21/2022 mammogram - [facility]. Both breasts are extremely dense, which lowers the sensitivity of mammography (category d />75% gland ular tissue). There are benign post operative findings in the right breast. No significant masses, calcifications, or other findings are seen in either breast. There has been no significant interval change. IMPRESSION: BENIGN There is no mammographic evidence of malignancy. A 1 year screening mammogram is recommended. This exam was interpreted at Station ID: [id number]. NOTE: For mammograms, a report in lay terms will be sent to the patient. Approximately 15% of breast malignancies will not be visualized mammographically. In the management of a palpable breast mass, a negative mammogram must not discourage biopsy of a clinically suspicious lesion. Electronically Signed By: Frank Mace M.D. lc/:09/05/2023 09:18:00 Entry: ka - 09/06/2023 11:27:31 letter sent: No_Letter ACR BI-RADS Category 2: Benign Finding(s) 3342F PARENCHYMAL PATTERN: (VD) - The breast(s) demonstrate(s) extremely dense parenchyma, limiting the sen sitivity of mammography. BI-RADS CATEGORY: (2) - 2 RECOMMENDATION: (ANNUAL) - Recommend routine annual screening mammography. [id number] 1 year screening LATERALITY: (B)
== END 2023-09-05 08:46 | disposition home or self-care (01) ==
LOC: DI 08:45
PROVIDERS: ATTEND Internal Medicine Hematology & Oncology
DX: C50.111 Malignant neoplasm of central portion of right female breast (principal); Z80.3 Family history of malignant neoplasm of breast; Z15.01 Genetic susceptibility to malignant neoplasm of breast

== ENCOUNTER 2023-09-20 11:50 | Outpatient (CLI) | payer OTHER ==
[2023-09-20] MEDS ORDERED: iohexoL-300 100 ML VIAL ONE (12:03)
[2023-09-20] MEDS ORDERED: DIATRIZOATE MEGLU/DIATRIZO SOD 30 ML BOTTLE PO ONE (12:03)
[2023-09-20] MEDS: DIATRIZOATE MEGLU/DIATRIZO SOD 30 ML BOTTLE PO ONE (13:17)
[2023-09-20] MEDS: iohexoL-300 100 ML VIAL IVP ONE (13:18)
--- NOTE | 2023-09-20 15:00 | CT Report ---
PROCEDURE: Abdomen/Pelvis W INDICATIONS: RLQ ABD PAIN CONTRAST: 100ml Omni 300 TECHNIQUE: After the administration of intravenous contrast, a CT scan of the abdomen and pelvis was performed. Images were recorded and evaluated at appropriate window settings. Reformats: coronal and sagittal. F or radiation dose reduction, the following was used: automated exposure control, adjustment of mA and /or kV according to patient size. COMPARISON: None. FINDINGS: Image quality: Diagnostic. Lower chest: Unremarkable. Liver: No solid mass. Gallbladder and biliary tree: Spleen: No splenomegaly. Pancreas: No pancreatic ductal dilation. Adrenals: No adrenal nodule. Kidneys and ureters: No hydronephrosis. No renal cystic lesion which requires follow up. No solid mas s. 6 mm stone in the region of the mid right ureter. Differential diagnosis includes a phlebolith. Stomach, bowel and peritoneum: No bowel distension. No pathologic free fluid. Diverticulosis without evidence of diverticulitis. Air-filled, normal-appearing appendix. Lymph nodes: No central or retroperitoneal adenopathy. Vessels: No infrarenal aortic aneurysm. PELVIS Reproductive organs: Enlarged uterus, heterogeneous appearing enhancement of the uterus. Small amount of endometrial fluid. Bladder: No abnormal wall thickening, accounting for underdistention. Pelvic lymph nodes: No pelvic adenopathy by size criteria. Bones: No aggressive osseous abnormality. Other: No significant ventral or inguinal hernia. IMPRESSION: 1. A 6 mm round calcification projecting over the right mid ureter represent a stone in the mid right ureter. Differential diagnosis includes an incidental phlebolith. No hydronephrosis or perirenal str anding is seen. 2. Normal appendix. 3. Enlarged, heterogeneously enhancing uterus with small amount of fluid in the endometrium. If indic ated ultrasound may further evaluate. Reviewed by: Omer Krishna MD on 09/20/2023 2:58 PM PDT Approved by: Omer Krishna MD on 09/20/2023 2:58 PM PDT Station ID: [id number]
== END 2023-09-20 11:51 | disposition home or self-care (01) ==
LOC: DI 11:50
PROVIDERS: ATTEND Physician Assistant
DX: R10.31 Right lower quadrant pain (principal); N85.2 Hypertrophy of uterus; R93.421 Abnormal radiologic findings on diagnostic imaging of right kidney
CPT/HCPCS: 74177; Q9963; Q9967

== ENCOUNTER 2023-11-10 09:24 | Outpatient (CLI) | payer OTHER ==
--- NOTE | 2023-11-10 22:09 | Ultrasound Report ---
PROCEDURE: Pelvic w/Transvaginal INDICATIONS: ABN CT TECHNIQUE: Real-time scanning was performed of the pelvic organs, with image documentation. Additional endovagi nal scanning was necessary due to incomplete visualization of the adnexal and endometrial structures by transabdominal scanning. COMPARISON: CT abdomen and pelvis on September 20, 2023 FINDINGS: Uterus: Uterus is anteverted and normal in size at 8.6 x 3.7 x 4.5 cm. The myometrium is heterogene ous. The endometrium measures 6 mm in combined thickness. Cervix and vagina are within normal limit s. Small myometrial cyst measuring 5 x 4 x 4 mm. Ovaries: The right ovary measures 1.4 x 0.9 x 1 cm, with a calculated ovarian volume of 0.6 cc. The left ovary measures 1.2 x 0.9 x 0.7 cm, with a calculated ovarian volume of 0.4 cc. The ovaries hav e a normal sonographic appearance. Less than 12 follicles can be seen in each ovary. No adnexal mas ses are seen. No cystic lesions measuring greater than 3 cm. Other: No free fluid. IMPRESSION: 1.Endometrial thickness is 6 mm. 2.Myometrium is heterogeneous which is nonspecific. Tiny benign myometrial cyst measuring 5 by 4 x 4 MM. 3.Normal sonographic appearance of the bilateral ovaries. Reviewed by: Logan Vega MD on 11/10/2023 10:08 PM PDT Approved by: Logan Vega MD on 11/10/2023 10:08 PM PDT Station ID: [id number]
== END 2023-11-10 09:25 | disposition home or self-care (01) ==
LOC: DI 09:24
PROVIDERS: ATTEND Physician Assistant
DX: N85.8 Other specified noninflammatory disorders of uterus (principal)